=== PATIENT | male | born 1955 | race Caucasian/White ===

== ENCOUNTER 2017-01-12 08:36 | Outpatient (CLI) ==
[2016-02-15 13:33] VITALS: BMI 40.7
[2017-01-12 09:08] LABS: BASOPHILS # (AUTO) 0.1 K/uL (0-0.2); EOSINOPHILS # (AUTO) 0.5 K/ul (0.0-0.7); EOSINOPHILS % (AUTO) 5.7 % (0.0-7.0); HEMOGLOBIN 11.6 g/dl (14.0-18.0); IMMATURE GRANULOCYTE % (AUTO) 0.4 % (0.0-5.0); LYMPHOCYTES # (AUTO) 1.8 K/uL (0.60-3.4); LYMPHOCYTES % (AUTO) 21.8 (10.0-50.0); MEAN CORPUSCULAR HEMOGLOBIN 29.2 pg (27.0-31.0); MEAN CORPUSCULAR HGB CONC 31.4 (31.8-35.4); MEAN CORPUSCULAR VOLUME 93.2 fl (80.0-94.0); MONOCYTES # (AUTO) 0.6 K/uL (0.4-2.0); MONOCYTES % (AUTO) 6.7 (0-10); NEUTROPHILS # (AUTO) 5.3 K/ul (2.0-6.9); NEUTROPHILS % (AUTO) 64.4; PLATELET COUNT 238 10^3/uL (140-440); RED BLOOD COUNT 3.97 10^6/ul (4.70-6.10); WHITE BLOOD COUNT 8.27 K/ul (4.2-10.2)
[2017-01-12 09:19] LABS: PROTHROMBIN TIME 18.3 SEC (9.3-11.0)
[2017-01-12 09:25] LABS: ALBUMIN/GLOBULIN RATIO 0.71; ANION GAP 16.7; BILIRUBIN,TOTAL 0.35 mg/dL (0.00-1.20); BUN/CREATININE RATIO 15.61; CREATININE 2.69 mg/dL (0.60-1.10); POTASSIUM 4.7 mmol/L (3.5-5.1); TOTAL PROTEIN 7.2 g/dL (5.8-8.1)
== END 2017-01-12 08:37 | disposition home or self-care (01) ==
LOC: LAB 08:36
PROVIDERS: ATTEND Internal Medicine
DX: Z51.81 Encounter for therapeutic drug level monitoring (principal); Z79.01 Long term (current) use of anticoagulants; I25.10 Atherosclerotic heart disease of native coronary artery without angina pectoris; I73.9 Peripheral vascular disease, unspecified; E11.9 Type 2 diabetes mellitus without complications
CPT/HCPCS: 36415; 80053; 83036; 85025; 85610

== ENCOUNTER 2017-01-20 07:33 | Outpatient (CLI) | payer OTHER ==
[2016-02-15 13:33] VITALS: BMI 40.7
--- NOTE | 2017-01-20 08:33 | US ---
EXAM: Renal ultrasound. History: Renal cyst. Technique: Multiple sonographic images through the kidneys were obtained. Color duplex Doppler was used to interrogate vascular flow. Findings: The visualized bladder demonstrates no gross abnormality. The right kidney measures 12.7 cm in long length demonstrating normal cortical echogenicity without evidence for hydronephrosis. 1.5 cm cyst within the right kidney with thin internal septations. No shadowing calculi. The left kidney measures 11.6 cm in long length demonstrating normal cortical echogenicity without e vidence for hydronephrosis or shadowing calculus. 1.3 cm left renal cyst with internal echoes. Impression: Small complicated bilateral renal cysts. Recommend follow-up renal ultrasound in 6 mon ths to document stability. No hydronephrosis.
== END 2017-01-20 07:34 | disposition home or self-care (01) ==
LOC: RAD 07:33
PROVIDERS: ATTEND Urology
DX: N28.89 Other specified disorders of kidney and ureter (principal)
CPT/HCPCS: 76770

== ENCOUNTER 2017-02-03 08:46 | Outpatient (CLI) ==
[2016-02-15 13:33] VITALS: BMI 40.7
[2017-02-03 09:42] LABS: HEMATOCRIT 36.7 % (42.0-52.0); HEMOGLOBIN 11.9 g/dl (14.0-18.0); MEAN CORPUSCULAR HEMOGLOBIN 29.5 pg (27.0-31.0); MEAN CORPUSCULAR HGB CONC 32.4 (31.8-35.4); MEAN CORPUSCULAR VOLUME 91.1 fl (80.0-94.0); RED BLOOD COUNT 4.03 10^6/ul (4.70-6.10); WHITE BLOOD COUNT 9.34 K/ul (4.2-10.2)
[2017-02-03 09:47] LABS: BILIRUBIN,URINE Negative (NEGATIVE); KETONES,URINE Negative (NEGATIVE); LEUKOCYTE ESTERASE ,URINE Negative (NEGATIVE); NITRITE,URINE Negative (NEGATIVE); PH,URINE 5.5 (5-9); PROTEIN,URINE 3+ (NEGATIVE); URINE, BLOOD 2+ (NEGATIVE)
[2017-02-03 09:50] LABS: ADD URINE MICROSCOPIC YES
[2017-02-03 09:54] LABS: BACTERIA,URINE TRACE (NOT PRESENT)
[2017-02-03 10:20] LABS: ALBUMIN 2.9 g/dL (3.4-5.0); BUN/CREATININE RATIO 17.55; CALCIUM 9.4 mg/dL (8.2-10.2); CREATININE 2.62 mg/dL (0.60-1.10); PHOSPHORUS 4.6 mg/dL (2.3-3.7); URIC ACID 6.8 mg/dL (2.6-7.2)
[2017-02-06 18:49] LABS: A/G RATIO 0.9 (0.7-1.7); ALPHA-1 GLOBULIN 0.3 g/dL (0.0-0.4); ALPHA-2 GLOBULIN 0.9 g/dL (0.4-1.0); GAMMA GLOBULIN 1.2 g/dL (0.4-1.8); TOTAL GLOBULINS 3.4 g/dL (2.2-3.9)
[2017-02-08 08:51] LABS: ANTI-NUCLEAR ANTIBODY SCREEN Negative (Negative)
[2017-02-08 09:04] LABS: COMPLEMENT C3 131; COMPLEMENT C4 22
[2017-02-08 09:05] LABS: URINE CREATINE 86.8
[2017-02-08 09:06] LABS: URINE PROTEIN/CREATININE RATIO 7738
== END 2017-02-03 08:47 | disposition home or self-care (01) ==
LOC: LAB 08:46
PROVIDERS: ATTEND Specialist
DX: N18.4 Chronic kidney disease, stage 4 (severe) (principal)
CPT/HCPCS: 36415; 80069; 81001; 82306; 82570; 83970; 84156; 84165; 84550; 85027; 86038; 86160

== ENCOUNTER 2017-03-30 08:30 | Outpatient (CLI) ==
[2016-02-15 13:33] VITALS: BMI 40.7
[2017-03-30 08:56] LABS: BASOPHILS # (AUTO) 0.1 K/uL (0-0.2); EOSINOPHILS # (AUTO) 0.5 K/ul (0.0-0.7); EOSINOPHILS % (AUTO) 5.4 % (0.0-7.0); HEMATOCRIT 41.6 % (42.0-52.0); IMMATURE GRANULOCYTE % (AUTO) 0.2 % (0.0-5.0); LYMPHOCYTES # (AUTO) 1.6 K/uL (0.60-3.4); LYMPHOCYTES % (AUTO) 15.9 (10.0-50.0); MEAN CORPUSCULAR HEMOGLOBIN 29.7 pg (27.0-31.0); MEAN CORPUSCULAR HGB CONC 33.7 (31.8-35.4); MEAN CORPUSCULAR VOLUME 88.3 fl (80.0-94.0); MONOCYTES # (AUTO) 0.6 K/uL (0.4-2.0); MONOCYTES % (AUTO) 5.8 (0-10); NEUTROPHILS # (AUTO) 7.1 K/ul (2.0-6.9); NEUTROPHILS % (AUTO) 71.7; PLATELET COUNT 262 10^3/uL (140-440); RED BLOOD COUNT 4.71 10^6/ul (4.70-6.10); WHITE BLOOD COUNT 9.97 K/ul (4.2-10.2)
[2017-03-30 09:22] LABS: PROTHROMBIN TIME 27.4 SEC (9.3-11.0)
[2017-03-30 09:31] LABS: ALBUMIN 3.2 g/dL (3.4-5.0); ALBUMIN/GLOBULIN RATIO 0.67; ANION GAP 14.4; BILIRUBIN,TOTAL 0.36 mg/dL (0.00-1.20); BUN/CREATININE RATIO 21.25; CALCIUM 10.7 mg/dL (8.2-10.2); CHOL/HDL RATIO 4.2 (4.5-6.4); CREATININE 2.87 mg/dL (0.60-1.10); POTASSIUM 5.4 mmol/L (3.5-5.1)
== END 2017-03-30 08:31 | disposition home or self-care (01) ==
LOC: LAB 08:30
PROVIDERS: ATTEND Internal Medicine
DX: D64.9 Anemia, unspecified (principal); E78.5 Hyperlipidemia, unspecified; I25.10 Atherosclerotic heart disease of native coronary artery without angina pectoris; E11.9 Type 2 diabetes mellitus without complications; I73.9 Peripheral vascular disease, unspecified; Z12.5 Encounter for screening for malignant neoplasm of prostate; Z51.81 Encounter for therapeutic drug level monitoring; Z79.899 Other long term (current) drug therapy
CPT/HCPCS: 36415; 80053; 80061; 83036; 84443; 85025; 85610

== ENCOUNTER 2017-04-04 08:44 | Outpatient (CLI) | payer OTHER ==
[2016-02-15 13:33] VITALS: BMI 40.7
[2017-04-04 09:16] LABS: ALBUMIN 3.1 g/dL (3.4-5.0); ALBUMIN/GLOBULIN RATIO 0.74; ANION GAP 16.9; BILIRUBIN,TOTAL 0.32 mg/dL (0.00-1.20); BUN/CREATININE RATIO 21.09; CALCIUM 9.4 mg/dL (8.2-10.2); CREATININE 2.75 mg/dL (0.60-1.10); POTASSIUM 4.9 mmol/L (3.5-5.1); TOTAL PROTEIN 7.3 g/dL (5.8-8.1)
== END 2017-04-04 08:45 | disposition home or self-care (01) ==
LOC: LAB 08:44
PROVIDERS: ATTEND Internal Medicine
DX: E87.5 Hyperkalemia (principal)
CPT/HCPCS: 36415; 80053

== ENCOUNTER 2017-05-11 10:10 | Emergency (ER) | payer OTHER ==
[2017-05-11 10:17] VITALS: BP 114/63; TEMP 97.6; BMI 37.5
[2017-05-11 10:59] LABS: BASOPHILS # (AUTO) 0.1 K/uL (0-0.2); BASOPHILS % (AUTO) 0.7 % (0.0-3.0); EOSINOPHILS # (AUTO) 0.2 K/ul (0.0-0.7); EOSINOPHILS % (AUTO) 1.9 % (0.0-7.0); IMMATURE GRANULOCYTE % (AUTO) 0.6 % (0.0-5.0); LYMPHOCYTES # (AUTO) 1.4 K/uL (0.60-3.4); LYMPHOCYTES % (AUTO) 13.5 (10.0-50.0); MEAN CORPUSCULAR HEMOGLOBIN 30.3 pg (27.0-31.0); MEAN CORPUSCULAR HGB CONC 31.7 (31.8-35.4); MEAN CORPUSCULAR VOLUME 95.4 fl (80.0-94.0); MONOCYTES # (AUTO) 0.5 K/uL (0.4-2.0); MONOCYTES % (AUTO) 4.8 (0-10); NEUTROPHILS # (AUTO) 7.9 K/ul (2.0-6.9); NEUTROPHILS % (AUTO) 78.5; PLATELET COUNT 257 10^3/uL (140-440); RED BLOOD COUNT 1.95 10^6/ul (4.70-6.10); WHITE BLOOD COUNT 10.07 K/ul (4.2-10.2)
[2017-05-11 11:01] LABS: HEMATOCRIT 18.6 % (42.0-52.0); HEMOGLOBIN 5.9 g/dl (14.0-18.0)
[2017-05-11 11:25] LABS: PARTIAL THROMBOPLASTIN TIME 42.7 SEC (23.9-40.0)
[2017-05-11 11:32] LABS: PROTHROMBIN TIME 51.3 SEC (9.3-11.0)
[2017-05-11 11:44] LABS: ALBUMIN 2.9 g/dL (3.4-5.0); ALBUMIN/GLOBULIN RATIO 0.81; ANION GAP 16.6; BILIRUBIN,TOTAL 0.3 mg/dL (0.00-1.20); BUN/CREATININE RATIO 20.78; CALCIUM 8.7 mg/dL (8.2-10.2); POTASSIUM 4.6 mmol/L (3.5-5.1); TOTAL PROTEIN 6.5 g/dL (5.8-8.1)
[2017-05-11 11:50] LABS: CREATININE 3.56 mg/dL (0.60-1.10); TROPONIN I 4.636 ng/ml (0.0000-0.4000)
[2017-05-11] MEDS ORDERED: MEPHYTON PO STA (12:07)
--- NOTE | 2017-05-11 12:20 | CT ---
EXAM: CT ABDOMEN AND PELVIS HISTORY: Chronic renal disease, blood in stool, left-sided abdominal pain TECHNIQUE: CT abdomen and pelvis without intravenous contrast. Images were reconstructed using 5 m m section thickness. Reformations were prepared. COMPARISON: 02/15/2016 FINDINGS: Diagnostic limitations exist without including contrast enhanced images. No obvious focal hepatic o r splenic lesions. Again noted is possible cirrhotic architecture of the liver. High attenuation w ithin the dependent portion of the gallbladder may represent tiny calculi. The gallbladder is mildl y distended. No pericholecystic stranding or obvious gallbladder wall thickening. No pancreatic pa thology is suggested. Stable fatty enlargement of both adrenal glands, probably representing a smal l adenomas. Largest on the right at 1.9 cm. No hydronephrosis or ureteral obstruction. Severe ath erosclerotic disease. Caliber narrowing of the distal aorta and iliac arteries. Redemonstration of prominent mesenteric, inguinal and iliac chain lymph nodes as well as the stellate partially calcif ied mesenteric root mass measuring about 4 cm. Stomach is within normal limits. No appendix. Mild diverticulosis of the descending colon. Bowel gas pattern is within normal limits. No prostate enlargement is seen. Urinary bladder is unremarka ble. No ascites. Mildly prominent fatty bilateral inguinal canal. The bones demonstrate severe arthropathy of the hi ps. There is a small right pleural effusion and trace left pleural fluid. No pneumoperitoneum. IMPRESSION: 1. Mild descending colon diverticulosis. No well-defined bowel mass. Further workup may be needed given patient history. 2. Stellate partially calcified mesenteric root mass is stable as are prominent mesenteric, iliac c alesha and bilateral inguinal lymph nodes. Findings can be consistent with lymphoproliferative diseas e becoming conglomerate at the mesenteric root level, metastatic carcinoid with reactive or metastat ic nodes, among other possibilities. Exact etiology is uncertain. 3. Severe atherosclerotic disease. 4. Probable bilateral adrenal adenomas, stable. 5. Tiny gallstones are suggested. Gallbladder is mildly distended although otherwise unremarkable. 6. Stable appearance of the liver which could indicate early cirrhosis.
--- NOTE | 2017-05-11 12:43 | ED.PDOC ---
General ED Provider: Dr. TASNEEM CARRANZA Chief Complaint: GI Bleed Stated Complaint: LOWER Gi bleed Time Seen by Physician: 10:11 (started to have LOWER GI BLEED THIS MORNING) Mode of Arrival: Walk-In Information Source: Patient, Family Exam Limitations: No limitations Primary Care Provider: MANFRED BARNETT Nursing and Triage Documentation Reviewed and Agree: Yes (SEEN WITH NURSES AND LATER CATH MAY ARRIVED AND TRIED TO TALK TO PT ) GI Complaint Exam - Rectal Complaint/Exam Patient Complains of: Reports: Rectal bleeding Onset/Duration: THIS MORNING Symptoms Are: Resolved Timing: Intermittent Episodes Lasting: Minutes Initial Severity: Moderate Current Severity: None Location: Reports: No pain Aggravating: Reports: Bowel movement Alleviating: Reports: None Associated Signs and Symptoms: Reports: Rectal bleeding, Bright red blood w/ stool Related History: Reports: Hemorrhoids. Denies: Similar episode Related Surgical History: Reports: None Review of Systems - Review Of Systems Constitutional: Reports: Malaise, Weakness Eyes: Reports: No symptoms Ears, Nose, Mouth, Throat: Reports: No symptoms Respiratory: Reports: No symptoms Cardiac: Reports: No symptoms GI: Reports: Rectal bleeding : Reports: No symptoms Musculoskeletal: Reports: No symptoms Skin: Reports: No symptoms Neurological: Reports: No symptoms Endocrine: Reports: No symptoms Hematologic/Lymphatic: Reports: No symptoms All Other Systems: Reviewed and Negative Past Medical History - Past Medical History Previously Healthy: Yes Endocrine: Reports: DM 1, Dyslipidemia Cardiovascular: Reports: Hypertension Respiratory: Reports: None Hematological: Reports: None Gastrointestinal: Reports: GERD Genitourinary: Reports: None Neuro/Psych: Reports: Depression Musculoskeletal: Reports: None Cancer: Reports: None - Surgical History General Surgical History: Reports: Other (groin abscess) - Family History Family History: Reports: Unknown - Social History Smoking Status: Current every day smoker Hx Substance Use: No Alcohol Screening: None Physical Exam - Physical Exam Appearance: Ill-appearing Ill-appearing: Moderate Pain Distress: Mild Eyes: REECE, EOMI, Conjunctiva clear ENT: Ears normal, Nose normal, Oropharynx normal Respiratory: Airway patent, Breath sounds clear, Breath sounds equal, Respirations nonlabored Cardiovascular: RRR, Pulses normal, No rub, No murmur GI/: Soft, Nontender, No masses, Bowel sounds normal, No Organomegaly Musculoskeletal: Normal strength, ROM intact, No edema, No calf tenderness Skin: Warm, Dry, Normal color Neurological: Sensation intact, Motor intact, Reflexes intact, Cranial nerves intact, Alert, Oriented Psychiatric: Affect appropriate, Mood appropriate Interpretation - Radiology Interpretation Radiology Interpretation By: Radiologist Critical Care Note - Critical Care Note Total Time (mins): 0 Course - Course Hematology/Chemistry: 05/11/17 10:37 05/11/17 10:47 Orders, Labs, Meds: Lab Review 05/11/17 05/11/17 05/11/17 10:37 10:38 10:47 WBC 10.07 RBC 1.95 L Hgb 5.9 L* Hct 18.6 L* MCV 95.4 H MCH 30.3 MCHC 31.7 L RDW Coeff of Latosha 17.4 H Plt Count 257 Immature Gran % (Auto) 0.6 Neut % (Auto) 78.5 Lymph % (Auto) 13.5 [place] % (Auto) 4.8 Eos % (Auto) 1.9 Baso % (Auto) 0.7 Immature Gran # (Auto) 0.1 Neut # 7.9 H Lymph # 1.4 [place] # 0.5 Eos # 0.2 Baso # 0.1 PT 51.3 H INR 4.98 H* APTT 42.7 H Sodium 138 Potassium 4.6 Chloride 108 H Carbon Dioxide 18 L Anion Gap 16.6 BUN 74 H* Creatinine 3.56 H* Estimated GFR (MDRD) 18.00 BUN/Creatinine Ratio 20.78 Glucose 179 H Calcium 8.7 Total Bilirubin 0.30 AST 14 L ALT 11 L Alkaline Phosphatase 78 Troponin I 4.6360 H* Total Protein 6.5 Albumin 2.9 L Globulin 3.6 Albumin/Globulin Ratio 0.81 Orders Category Date Time Status EKG-(ED ONLY) Stat CARDIO 05/11/17 10:38 Completed CBC W/ AUTO DIFF Stat LAB 05/11/17 10:37 Completed COMPREHENSIVE METABOLIC PANEL Stat LAB 05/11/17 10:47 Completed PARTIAL THROMBOPLASTIN TIME Stat LAB 05/11/17 10:38 Completed PRBC Transfusion [PACKED CELLS] Stat LAB 05/11/17 12:00 Received PT WITH INR Stat LAB 05/11/17 10:38 Completed T&S [TYPE AND SCREEN] Stat LAB 05/11/17 12:00 Received TROPONIN I Stat LAB 05/11/17 10:47 Completed Phytonadione [Mephyton] MEDS 05/11/17 12:07 Discontinued 5 mg PO ONCE STA CT ABDOMEN/PELVIS WO CONTRAST Stat RADS 05/11/17 10:38 Completed Medications Discontinued Medications Generic Name Dose Route Start Last Admin Trade Name Tika PRN Reason Stop Dose Admin Phytonadione 5 mg 05/11/17 12:07 05/11/17 12:12 Mephyton PO 05/11/17 12:08 5 mg ONCE STA Administration Vital Signs: Temp Pulse Resp BP Pulse Ox 05/11/17 10:11 97.6 F 105 H 20 114/63 96 Departure - Departure Time of Disposition: 12:45 (TEE LYNN AND PT'S SPOKE TO THE PT HE IREFUSING TO BE ADMITTED AT THIS HE IS REFUSING RECTAL EXAM . PT REFUSING TO BE TRANSFERED PMD WANTS HIM TRANSFERED I WILL TRANFUSE THE PT AND WATCH HIM OUT PT TODAY WE WILL REPEAT LABS AND MAY TRANFUSE IN AM ) Disposition: HOME SELF-CARE Discharge Problem: Gastrointestinal hemorrhage Warfarin toxicity Qualifiers: Encounter type: initial encounter Anemia Qualifiers: Other causes of anemia: other cause, not classified Instructions: Warfarin Toxicity (ED), Rectal Bleeding (ED) Condition: Stable Pt referred to PMD for follow-up: Yes Allergies/Adverse Reactions: Allergies flu vaccine Adverse Reaction (Uncoded 05/11/17 10:18) Home Medications: Ambulatory Orders Albuterol Sulfate [Proair Hfa] 2 puff IH Q4H PRN 08/17/15 Aspirin [Aspirin Chewable] 81 mg PO DAILYWM 08/17/15 Atorvastatin Calcium [Lipitor] 40 mg PO BEDTIME 08/17/15 Insulin Glargine,Hum.rec.anlog [Lantus] 10 unit SUBCUT DAILY PRN 08/17/15 Metaxalone [Skelaxin] 800 mg PO Q6HR 08/17/15 Ascorbate Calcium [Vitamin C] 500 mg PO DAILY 10/07/15 Cholecalciferol (Vitamin D3) [Vitamin D-3] 2,000 units PO DAILY 10/07/15 Duloxetine HCl [Cymbalta] 60 mg PO BEDTIME 10/07/15 Furosemide [Lasix] 40 mg PO DAILY 30 Days 10/09/15 Hydrocodone/Acetaminophen [[place] 10-325 Tablet] 1 each PO Q6H 02/15/16 Clonazepam 0.5 mg PO BID 05/11/17 Diltiazem HCl [Diltiazem 24Hr ER] 180 mg PO DAILY 05/11/17 Docusate Sodium 100 mg PO DAILY PRN 05/11/17 Ferrous Sulfate 325 mg PO DAILY 05/11/17 Metoprolol Tartrate [Lopressor] 25 mg PO BID 05/11/17 Tamsulosin HCl [Flomax] 0.4 mg PO BEDTIME 05/11/17 Warfarin Sodium [Coumadin] 3 mg PO QPM 05/11/17
== END 2017-05-11 13:30 | disposition home or self-care (01) ==
LOC: ED 10:10
DX: K62.5 Hemorrhage of anus and rectum (principal); T45.515A Adverse effect of anticoagulants, initial encounter; D64.9 Anemia, unspecified; E10.9 Type 1 diabetes mellitus without complications; E78.5 Hyperlipidemia, unspecified; I10 Essential (primary) hypertension; Z79.01 Long term (current) use of anticoagulants; Z79.899 Other long term (current) drug therapy; F17.210 Nicotine dependence, cigarettes, uncomplicated; K92.2 Gastrointestinal hemorrhage, unspecified
CPT/HCPCS: 36415; 36430; 80053; 84484; 85014; 85018; 85025; 85610; 85730; 86850; 86900; 86922; 93005; 93010; 96365; 96366; 99283

== ENCOUNTER 2017-05-11 12:54 | Outpatient (CLI) ==
[2017-05-11 10:17] VITALS: BMI 37.5
[2017-05-11 23:32] VITALS: BP 121/71; TEMP 96.2
[2017-05-12 00:54] LABS: HEMATOCRIT 23.9 % (42.0-52.0); HEMOGLOBIN 7.8 g/dl (14.0-18.0)
== END 2017-05-11 12:55 | disposition home or self-care (01) ==
LOC: OUTPT 12:54
PROVIDERS: ATTEND Internal Medicine
DX: K92.2 Gastrointestinal hemorrhage, unspecified (principal)
CPT/HCPCS: 36415; 36430; 86850; 86900; 86922

== ENCOUNTER 2017-05-12 10:11 | Outpatient (CLI) ==
[2017-05-11 10:17] VITALS: BMI 37.5
[2017-05-12 10:42] LABS: PROTHROMBIN TIME 26.5 SEC (9.3-11.0)
== END 2017-05-12 10:12 | disposition home or self-care (01) ==
LOC: LAB 10:11
PROVIDERS: ATTEND Internal Medicine
DX: K92.2 Gastrointestinal hemorrhage, unspecified (principal); Z51.81 Encounter for therapeutic drug level monitoring; Z79.899 Other long term (current) drug therapy; Z98.890 Other specified postprocedural states
CPT/HCPCS: 36415; 85610

== ENCOUNTER 2017-05-15 11:21 | Outpatient (CLI) ==
[2017-05-15 11:57] LABS: BASOPHILS % (AUTO) 0.4 % (0.0-3.0); EOSINOPHILS # (AUTO) 0.1 K/ul (0.0-0.7); EOSINOPHILS % (AUTO) 0.7 % (0.0-7.0); LYMPHOCYTES # (AUTO) 1.1 K/uL (0.60-3.4); LYMPHOCYTES % (AUTO) 10.4 (10.0-50.0); MEAN CORPUSCULAR HEMOGLOBIN 29.4 pg (27.0-31.0); MEAN CORPUSCULAR HGB CONC 31.2 (31.8-35.4); MONOCYTES # (AUTO) 0.6 K/uL (0.4-2.0); MONOCYTES % (AUTO) 5.6 (0-10); NEUTROPHILS # (AUTO) 8.7 K/ul (2.0-6.9); NEUTROPHILS % (AUTO) 81.9; PLATELET COUNT 231 10^3/uL (140-440); RED BLOOD COUNT 2.01 10^6/ul (4.70-6.10); WHITE BLOOD COUNT 10.61 K/ul (4.2-10.2)
[2017-05-15 12:09] LABS: HEMATOCRIT 18.9 % (42.0-52.0); HEMOGLOBIN 5.9 g/dl (14.0-18.0)
[2017-05-15 12:11] LABS: ANISOCYTOSIS 1+ (NOT PRESENT); HYPOCHROMASIA 1+ (NOT PRESENT); POLYCHROMASIA 1+ (NOT PRESENT)
[2017-05-15 12:12] LABS: PROTHROMBIN TIME 13.6 SEC (9.3-11.0)
[2017-05-15 12:21] LABS: ALBUMIN 2.9 g/dL (3.4-5.0); ALBUMIN/GLOBULIN RATIO 0.88; ANION GAP 20.6; BILIRUBIN,TOTAL 0.43 mg/dL (0.00-1.20); BUN/CREATININE RATIO 16.53; CALCIUM 8.5 mg/dL (8.2-10.2); POTASSIUM 4.6 mmol/L (3.5-5.1); TOTAL PROTEIN 6.2 g/dL (5.8-8.1)
[2017-05-15 12:40] LABS: CREATININE 5.08 mg/dL (0.60-1.10)
== END 2017-05-15 11:22 ==
LOC: LAB 11:21
PROVIDERS: ATTEND Internal Medicine
DX: D64.9 Anemia, unspecified (principal); I10 Essential (primary) hypertension; E11.9 Type 2 diabetes mellitus without complications
CPT/HCPCS: 36415; 80053; 85008; 85025; 85610

== ENCOUNTER 2017-05-15 14:00 | Emergency (ER) ==
[2017-05-15 14:07] VITALS: BP 107/68; TEMP 98.7; BMI 34.8
--- NOTE | 2017-05-15 14:29 | ED.PDOC ---
General ED Provider: Dr. TASNEEM CARRANZA Chief Complaint: Non-specific Complaint Stated Complaint: anemia and lower G.I. bleed Time Seen by Physician: 14:00 (S/P TRANSFUSION ABOUT 5 DAYS AGO 3 UNITS OUT PT) Mode of Arrival: Wheelchair Information Source: Family, Other Exam Limitations: No limitations Primary Care Provider: MANFRED BARNETT Nursing and Triage Documentation Reviewed and Agree: Yes GI Complaint Exam - GI Bleed Complaint/Exam Patient Complains of: Reports: Rectal bleeding (SINCE LAST WEEK NONE TODAY ). Denies: Vomiting blood, Black stools Onset/Duration: ONGOING WAS SEEN LAST WEEK Symptoms Are: Resolved (TODAY BUT WAS ACTIVE LAST NIGHT) Episodes Lasting: Days Severity: Reports: Blood-streaked stool. Denies: Black tarry stool, Bright red blood-rectum, Coffee ground emesis, Hematemesis Location of Pain: Reports: None Aggravating: Reports: None Alleviating: Reports: None Associated Signs and Symptoms: Reports: Dizziness, Weakness. Denies: Back Pain , Pallor, Syncope, Constipation, Nausea, Rectal pain, Bruising, Weight loss, Recent abnormal coags Related History: Reports: Similar episode GI Bleed Risk Factors: Reports: Coumadin use, Aspirin use (BOTH WERE STOPED A WEEK AGO BY PMD) Recent Colonoscopy: No Recent EGD: No Related Surgical History: Reports: None Abdominal Findings: Present: None Review of Systems - Review Of Systems Constitutional: Reports: Malaise, Weakness Eyes: Reports: No symptoms Ears, Nose, Mouth, Throat: Reports: No symptoms Respiratory: Reports: No symptoms Cardiac: Reports: No symptoms GI: Reports: Rectal bleeding : Reports: No symptoms Musculoskeletal: Reports: No symptoms Skin: Reports: No symptoms Neurological: Reports: No symptoms Endocrine: Reports: No symptoms Hematologic/Lymphatic: Reports: No symptoms All Other Systems: Reviewed and Negative Past Medical History - Past Medical History Previously Healthy: Yes Endocrine: Reports: DM 1, Dyslipidemia Cardiovascular: Reports: Hypertension Respiratory: Reports: None Hematological: Reports: None Gastrointestinal: Reports: GERD Genitourinary: Reports: None Neuro/Psych: Reports: Depression Musculoskeletal: Reports: None Cancer: Reports: None - Surgical History General Surgical History: Reports: Other (groin abscess) - Family History Family History: Reports: Unknown - Social History Smoking Status: Current every day smoker Hx Substance Use: No Alcohol Screening: None - Immunizations Tetanus Shot up to Date: No Physical Exam - Physical Exam Appearance: Ill-appearing Ill-appearing: Moderate Pain Distress: Mild Eyes: REECE, EOMI, Conjunctiva clear ENT: Ears normal, Nose normal, Oropharynx normal Respiratory: Airway patent, Breath sounds clear, Breath sounds equal, Respirations nonlabored Cardiovascular: RRR, Pulses normal, No rub, No murmur GI/: Soft, Nontender, No masses, Bowel sounds normal, No Organomegaly Musculoskeletal: Normal strength, ROM intact, No edema, No calf tenderness Skin: Warm, Dry, Normal color Neurological: Sensation intact, Motor intact, Reflexes intact, Cranial nerves intact, Alert, Oriented Psychiatric: Affect appropriate, Mood appropriate Physician Notification - Case Discussed Physician Notified: IRVIN Time of Notification: 14:31 (ACCEPTED FOR TRANSFER ) Physician Notified: ANIBAL Time of Notification: 14:32 Critical Care Note - Critical Care Note Total Time (mins): 0 Course - Course Vital Signs: Temp Pulse Resp BP Pulse Ox 05/15/17 14:01 98.7 F 86 20 107/68 90 L Departure - Departure Time of Disposition: 14:32 Disposition: TSF SHORT-TRM HOSP Discharge Problem: Renal failure Anemia Qualifiers: Anemia type: unspecified type Qualifier Code: (D64.9) Anemia, unspecified Instructions: Chronic Kidney Disease (ED) Condition: Good Pt referred to PMD for follow-up: No (TRANSFER ) Allergies/Adverse Reactions: Allergies flu vaccine Adverse Reaction (Uncoded 05/11/17 10:18) Home Medications: Ambulatory Orders Albuterol Sulfate [Proair Hfa] 2 puff IH Q4H PRN 08/17/15 Aspirin [Aspirin Chewable] 81 mg PO DAILYWM 08/17/15 Atorvastatin Calcium [Lipitor] 40 mg PO BEDTIME 08/17/15 Insulin Glargine,Hum.rec.anlog [Lantus] 10 unit SUBCUT DAILY PRN 08/17/15 Metaxalone [Skelaxin] 800 mg PO Q6HR 08/17/15 Ascorbate Calcium [Vitamin C] 500 mg PO DAILY 10/07/15 Cholecalciferol (Vitamin D3) [Vitamin D-3] 2,000 units PO DAILY 10/07/15 Duloxetine HCl [Cymbalta] 60 mg PO BEDTIME 10/07/15 Furosemide [Lasix] 40 mg PO DAILY 30 Days 10/09/15 Hydrocodone/Acetaminophen [[place] 10-325 Tablet] 1 each PO Q6H 02/15/16 Clonazepam 0.5 mg PO BID 05/11/17 Diltiazem HCl [Diltiazem 24Hr ER] 180 mg PO DAILY 05/11/17 Docusate Sodium 100 mg PO DAILY PRN 05/11/17 Ferrous Sulfate 325 mg PO DAILY 05/11/17 Metoprolol Tartrate [Lopressor] 25 mg PO BID 05/11/17 Tamsulosin HCl [Flomax] 0.4 mg PO BEDTIME 05/11/17 Warfarin Sodium [Coumadin] 3 mg PO QPM 05/11/17
== END 2017-05-15 15:06 | disposition short-term general hospital (02) ==
LOC: ED 14:00
DX: N19 Unspecified kidney failure (principal); D64.9 Anemia, unspecified; K92.1 Melena; R42 Dizziness and giddiness; R53.1 Weakness; E78.5 Hyperlipidemia, unspecified; I10 Essential (primary) hypertension; E10.9 Type 1 diabetes mellitus without complications; Z79.4 Long term (current) use of insulin; Z79.01 Long term (current) use of anticoagulants; Z79.899 Other long term (current) drug therapy; F17.210 Nicotine dependence, cigarettes, uncomplicated
CPT/HCPCS: 36415; 80053; 85008; 85025; 85610; 99284

== ENCOUNTER 2017-05-15 15:17 | Outpatient (CLI) ==
[2017-05-15 14:07] VITALS: BMI 34.8
== END 2017-05-15 15:18 | disposition home or self-care (01) ==
LOC: AMBL 15:17
PROVIDERS: ATTEND Internal Medicine
DX: K92.2 Gastrointestinal hemorrhage, unspecified (principal); R53.1 Weakness

== ENCOUNTER 2017-05-24 15:32 | Outpatient (CLI) ==
[2017-05-24 15:42] VITALS: BMI 43.9
== END 2017-05-24 15:33 | disposition home or self-care (01) ==
LOC: AMBL 15:32
PROVIDERS: ATTEND Internal Medicine
DX: I46.9 Cardiac arrest, cause unspecified (principal); N19 Unspecified kidney failure; Z99.2 Dependence on renal dialysis; R40.2431 Glasgow coma scale score 3-8, in the field [EMT or ambulance]

== ENCOUNTER 2017-05-24 15:37 | Emergency (ER) ==
[2017-05-24] MEDS: EPINEPHRINE 1:10,000 SYRINGE IV PRN ×3 (15:39→15:43)
[2017-05-24 15:42] VITALS: BP 00/00; TEMP 98; BMI 43.9
[2017-05-24] MEDS ORDERED: SODIUM BICARBONATE 7.5% IVP PRN (15:49)
--- NOTE | 2017-05-24 16:52 | ED.PDOC ---
General ED Provider: Dr. TASNEEM CARRANZA Chief Complaint: Cardiac Arrest Stated Complaint: CARDIAC ARREST Time Seen by Physician: 15:38 (PT HAD CARDIAC ARREST NEAR BY DIALYSIS CENTER. WAS NOTED TO BE IN PEA AND ASYSTOLE ) Mode of Arrival: Ambulance Information Source: Patient, EMT Exam Limitations: Clinical condition Primary Care Provider: MANFRED BARNETT Nursing and Triage Documentation Reviewed and Agree: Yes Cardiac Resuscitation - Cardiac Resuscitation Onset/Duration: Minutes (20 MINUTES PRIOR TO ARRIVAL. ) Witnessed Arrest: Yes (YES STAFF AT DIALYSIS CENTER) Down-time Before BLS Initiated: 2 MINUTES Down-time Before ALS Initiated: 5 MINUTES. Airway Prehospital Findings: Reports: Patent Breathing Prehospital Findings: Reports: Apnea Circulation/Rhythm Prehospital Findings: Reports: Pulses absent, Asystole, PEA Disability/Neurological Prehospital Findings: Reports: Unresponsive Airway Prehospital Intervention: Reports: Chin lift, Jaw thrust (BAG MASK VENTILATION. (PT DECLINED INTUBATION). ) Breathing Prehospital Intervention: Reports: Bag-valve mask (ASYSTOLE PEA.) Circulation/Rhythm Prehospital Intervention: Reports: IV/IO placed ( DIALYSIS PORT WERE USED FOR RESUCIAT) Airway Prehospital Response: BAG MASK VENTILATION WAS IN PROGRESS. NO INTUBATION PRIOR TO ARRIVAL. Circulation/Rhythm Prehospital Response: Present: Asystole, PEA (AR) Airway ED Findings: Gag reflex absent (SECRETION IN AIRWAY. ) Breathing ED Findings: Present: Apnea Circulation/Rhythm ED Findings: Present: Asystole, PEA Disability/Neurological ED Findings: Present: Unresponsive Airway ED Intervention: Chin lift, Jaw thrust (BAG MASK VENTILATION. ) Circulation/Rhythm ED Intervention: Chest compressions Right Pupil: Fixed, Dilated Left Pupil: Fixed, Dilated Review Of Systems: Unable due to extremis EMS/Code Sheet Reviewed: Yes Patient is a DNR: No ( DECLINED INTUBATION. ) Resuscitation Successful: No Terminated At: 15:49 Preliminary Cause of : CARDIAC RESPIRATORY ARREST Differential Diagnoses: Acute [place], Asystole, Card. Rhythm Disturbance, PEA, Respiratory Failure, Sudden Past Medical History - Past Medical History Previously Healthy: Yes Endocrine: Reports: DM 1, Dyslipidemia Cardiovascular: Reports: Hypertension Respiratory: Reports: None Hematological: Reports: None Gastrointestinal: Reports: GERD Genitourinary: Reports: None Neuro/Psych: Reports: Depression Musculoskeletal: Reports: None Cancer: Reports: None - Surgical History General Surgical History: Reports: Other (groin abscess) - Family History Family History: Reports: Unknown - Social History Smoking Status: Current every day smoker Hx Substance Use: No Alcohol Screening: None Critical Care Note - Critical Care Note Total Time (mins): 20 Course - Course Orders, Labs, Meds: Orders Category Date Time Status CPR - ED ONLY Stat CARDIO 05/24/17 15:49 Completed ED SALT CUTTER APPLIED .ONCE EMERGENCY 05/24/17 15:49 Active ED IV/MEDIPORT/POWERPORT .ONCE EMERGENCY 05/24/17 15:49 Active 0.9 % Sodium Chloride [Saline Flush] MEDS 05/24/17 15:49 Active 1 syr IVF PRN PRN Epinephrine [Epinephrine 1:10,000 Syringe] MEDS 05/24/17 15:49 Active 1 mg IV PRN PRN Sodium Bicarb 7.5% [Sodium Bicarbonate 7.5%] MEDS 05/24/17 15:49 Active 44.6 meq IVP PRN PRN Medications Generic Name Dose Route Start Last Admin Trade Name Freq PRN Reason Stop Dose Admin Epinephrine HCl 1 mg 05/24/17 15:49 05/24/17 15:43 Epinephrine 1:10,000 Syringe IV 1 mg PRN PRN Administration DIRECTED BY PHYSICIAN-CODE Sodium Bicarbonate 44.6 meq 05/24/17 15:49 05/24/17 15:37 Sodium Bicarbonate 7.5% IVP 44.6 meq PRN PRN Administration DIRECTED BY PHYSICIAN-CODE Sodium Chloride 1 syr 05/24/17 15:49 Saline Flush IVF PRN PRN To flush IV Vital Signs: Temp Pulse Resp BP Pulse Ox 05/24/17 15:43 20 05/24/17 15:38 98.0 F 0 L 20 00/00 L 0 L Departure - Departure Time of Disposition: 16:57 Disposition: Discharge Problem: Cardiac arrest Condition: Pt referred to PMD for follow-up: No Allergies/Adverse Reactions: Allergies flu vaccine Adverse Reaction (Uncoded 05/24/17 16:00) Home Medications: Ambulatory Orders Albuterol Sulfate [Proair Hfa] 2 puff IH Q4H PRN 08/17/15 Aspirin [Aspirin Chewable] 81 mg PO DAILYWM 08/17/15 Atorvastatin Calcium [Lipitor] 40 mg PO BEDTIME 08/17/15 Insulin Glargine,Hum.rec.anlog [Lantus] 10 unit SUBCUT DAILY PRN 08/17/15 Metaxalone [Skelaxin] 800 mg PO Q6HR 08/17/15 Ascorbate Calcium [Vitamin C] 500 mg PO DAILY 10/07/15 Cholecalciferol (Vitamin D3) [Vitamin D-3] 2,000 units PO DAILY 10/07/15 Duloxetine HCl [Cymbalta] 60 mg PO BEDTIME 10/07/15 Furosemide [Lasix] 40 mg PO DAILY 30 Days 10/09/15 Hydrocodone/Acetaminophen [[place] 10-325 Tablet] 1 each PO Q6H 02/15/16 Clonazepam 0.5 mg PO BID 05/11/17 Diltiazem HCl [Diltiazem 24Hr ER] 180 mg PO DAILY 05/11/17 Docusate Sodium 100 mg PO DAILY PRN 05/11/17 Ferrous Sulfate 325 mg PO DAILY 05/11/17 Metoprolol Tartrate [Lopressor] 25 mg PO BID 05/11/17 Tamsulosin HCl [Flomax] 0.4 mg PO BEDTIME 05/11/17 Warfarin Sodium [Coumadin] 3 mg PO QPM 05/11/17 Disposition Discussed With: Patient
== END 2017-05-24 17:20 | disposition expired ==
LOC: ED 15:37
DX: I46.9 Cardiac arrest, cause unspecified (principal); N19 Unspecified kidney failure; Z99.2 Dependence on renal dialysis; E10.9 Type 1 diabetes mellitus without complications; E78.5 Hyperlipidemia, unspecified; I10 Essential (primary) hypertension; F17.210 Nicotine dependence, cigarettes, uncomplicated; Z79.01 Long term (current) use of anticoagulants; Z79.899 Other long term (current) drug therapy
CPT/HCPCS: 96361; 96374; 96375; 96376; 99285